=== PATIENT | male | born 1945 | race Caucasian/White ===

== ENCOUNTER 2019-03-05 08:19 | Day surgery (SDC) | payer OTHER ==
[~2019-03-05 08:19] MED LIST: KETOROLAC TROMETHAMINE 0.45% 4 DROP/0.4 ML DROPERETTE OD PRN
[2019-03-05] MEDS: TETRACAINE HCL 0.5% OPH SOLN 4 ML OD PRN ×3 (08:53→09:24)
[2019-03-05] MEDS: CYCLOPENTOLATE 0.2%/PHENYLEPHRINE 1% OPH SOLN 2 ML OD PRN ×3 (08:54→09:17)
[2019-03-05] MEDS: TROPICAMIDE 1% OPH SOLN 15 ML OD PRN ×3 (08:54→09:17)
[2019-03-05] MEDS: BESIFLOXACIN HCL 0.6% OPH SUSP 5 ML BOTTLE OD PRN ×4 (08:55→09:44)
[2019-03-05] MEDS ORDERED: FENTANYL CITRATE INJ/PF 100 MCG/2 ML AMPUL ONE (09:09)
[2019-03-05] MEDS ORDERED: MIDAZOLAM 2 MG/2 ML INJ ONE (09:09)
[2019-03-05] MEDS ORDERED: ONDANSETRON HCL INJ/PF 4 MG/2 ML SDV ONE (09:09)
[2019-03-05] MEDS: LIDOCAINE 1% INJ-PF (10 MG/ML) 30 ML SDV ONE ×2 (09:34)
[2019-03-05] MEDS: CHONDR SU A NA/HYALUR INTRAOC KIT (SURGICARE) ONE ×2 (09:34)
[2019-03-05] MEDS: EPINEPHRINE INJ/PF 1 MG/1 ML AMPULE ONE ×2 (09:34)
[2019-03-05] MEDS: DORZOLAMIDE HCL 2%/TIMOLOL MALEAT 0.5% OPH SOLN 10 ML OD PRN ×2 (09:44)
[2019-03-05] MEDS: TOBRAMYCIN SULFATE/DEXAMETH OPH OINTMENT 3.5 GM ONE ×2 (09:44)
== END 2019-03-05 10:31 | disposition home or self-care (01) ==
LOC: SC 08:19
PROVIDERS: ATTEND Ophthalmology
DX: H25.11 Age-related nuclear cataract, right eye (principal); E11.9 Type 2 diabetes mellitus without complications; I10 Essential (primary) hypertension; M10.9 Gout, unspecified; I69.854 Hemiplegia and hemiparesis following other cerebrovascular disease affecting left non-dominant side; Z79.899 Other long term (current) drug therapy; Z79.84 Long term (current) use of oral hypoglycemic drugs
CPT/HCPCS: 66984; 82962; 00142; V2632; J2250; J3490 ×4; J0171; J3010; J2405; 142

== ENCOUNTER 2019-03-19 08:07 | Day surgery (SDC) | payer OTHER ==
[~2019-03-19 08:07] MED LIST changes: +CHONDR SU A NA/HYALUR INTRAOC KIT (SURGICARE) ONE; +EPINEPHRINE INJ/PF 1 MG/1 ML AMPULE ONE; +FENTANYL CITRATE INJ/PF 100 MCG/2 ML AMPUL ONE; -KETOROLAC TROMETHAMINE 0.45% 4 DROP/0.4 ML DROPERETTE OD PRN; +KETOROLAC TROMETHAMINE 0.45% 4 DROP/0.4 ML DROPERETTE OS PRN; +LIDOCAINE 1% INJ-PF (10 MG/ML) 30 ML SDV ONE; +MIDAZOLAM 2 MG/2 ML INJ ONE; +ONDANSETRON HCL INJ/PF 4 MG/2 ML SDV ONE
[2019-03-19] MEDS: TETRACAINE HCL 0.5% OPH SOLN 4 ML OS PRN ×3 (08:42→09:12)
[2019-03-19] MEDS: TROPICAMIDE 1% OPH SOLN 15 ML OS PRN ×3 (08:43→09:03)
[2019-03-19] MEDS: BESIFLOXACIN HCL 0.6% OPH SUSP 5 ML BOTTLE OS PRN ×4 (08:43→09:32)
[2019-03-19] MEDS: CYCLOPENTOLATE 0.2%/PHENYLEPHRINE 1% OPH SOLN 2 ML OS PRN ×3 (08:43→09:03)
[2019-03-19] MEDS: TOBRAMYCIN SULFATE/DEXAMETH OPH OINTMENT 3.5 GM ONE ×2 (09:32)
[2019-03-19] MEDS: DORZOLAMIDE HCL 2%/TIMOLOL MALEAT 0.5% OPH SOLN 10 ML OS PRN ×2 (09:32)
== END 2019-03-19 10:09 | disposition home or self-care (01) ==
LOC: SC 08:07
PROVIDERS: ATTEND Ophthalmology
DX: H25.12 Age-related nuclear cataract, left eye (principal); Z98.41 Cataract extraction status, right eye; E11.9 Type 2 diabetes mellitus without complications; I10 Essential (primary) hypertension; M10.9 Gout, unspecified; Z86.73 Personal history of transient ischemic attack (TIA), and cerebral infarction without residual deficits; Z79.84 Long term (current) use of oral hypoglycemic drugs; Z79.899 Other long term (current) drug therapy
CPT/HCPCS: 82962; 00142; 66984; V2632; J2250; J3490 ×4; J0171; J3010; J2405; 142